=== PATIENT | male | born 1970 | race Caucasian/White ===

== ENCOUNTER 2024-03-13 09:26 | Day surgery (SDC) | payer BC ==
[2024-03-09 17:09] LABS: BASOPHILS # (AUTO) 0.1 X10'3 (0-0.2); BASOPHILS % (AUTO) 0.7 % (0-1); EOSINOPHILS # (AUTO) 0.1 X10'3 (0-0.9); EOSINOPHILS % (AUTO) 1.6 % (0-6); HEMATOCRIT 41.6 % (42.0-52.0); HEMOGLOBIN 14.1 g/dl (14.0-17.9); LYMPHOCYTES # (AUTO) 2.8 X10'3 (1.1-4.8); LYMPHOCYTES % (AUTO) 32.3 % (21-51); MEAN CORPUSCULAR HEMOGLOBIN 30.8 PG (27.0-31.0); MEAN CORPUSCULAR HGB CONC 33.8 g/dL (33.0-36.5); MEAN CORPUSCULAR VOLUME 91.2 FL (78-98); MEAN PLATELET VOLUME 8.5 FL (7.4-10.4); MONOCYTES # (AUTO) 0.7 X10'3 (0-0.9); MONOCYTES % (AUTO) 8.7 % (2-12); NEUTROPHILS # (AUTO) 4.8 X10'3 (1.8-7.7); NEUTROPHILS % (AUTO) 56.7 % (42-75); PLATELET COUNT 278 X10'3 (140-440); RED BLOOD COUNT 4.56 X10'6 (4.70-6.10); RED CELL DISTRIBUTION WIDTH 13.4 % (11.5-14.5); WHITE BLOOD COUNT 8.5 X10'3 (4.5-11.0)
[2024-03-09 17:19] LABS: ALBUMIN 4.3 G/DL (3.4-5.0); ANION GAP 10 (8-16); BLOOD UREA NITROGEN 12 MG/DL (7-18); BUN/CREATININE RATIO 14.3 (10.0-20.0); CHLORIDE 101 MMOL/L (99-107); CHOL/HDL RATIO 2.8 (0.00-4.99); CHOLESTEROL 102 MG/DL (0-200); CREATININE 0.84 MG/DL (0.60-1.10); GLUCOSE 90 MG/DL (70-104); HDL CHOLESTEROL 37 MG/DL (35-60); LDL CHOLESTEROL 53 MG/DL (50-100); POTASSIUM 3.9 MMOL/L (3.5-5.1); SODIUM 139 MMOL/L (135-145); TOTAL CARBON DIOXIDE 28.3 MMOL/L (24-32); TRIGLYCERIDES 117 MG/DL (20-135); eGFR > 90 ML/MIN
[2024-03-09 17:20] LABS: APTT 27 SECONDS (22-32); PROTHROMBIN TIME 10.6 SECONDS (9.0-12.0)
[~2024-03-13] VITALS: Ht 170.2 cm; Wt 95.8 kg
[2024-03-13] VITALS (8 sets, daily range): BP systolic 110–141; BP diastolic 61–99; PULSE 62–74; RESP 16; TEMP 98.4; O2SAT 92–96
[2024-03-13] MEDS ORDERED: ASPI-611 PO (10:24)
[2024-03-13] MEDS ORDERED: ROSU10TA72 PO (10:24)
[2024-03-13] MEDS ORDERED: LIDOcaine 1% (10mg/ml) 2ml vial ONE (11:46)
[2024-03-13] MEDS ORDERED: verapamil 2.5 mg/ml inj IV ONE (11:46)
[2024-03-13] MEDS: diphenhydrAMINE 25mg capsule PO PRN (11:47)
[2024-03-13] MEDS ORDERED: midazolam 1 mg/ML 2ml injection ONE ×2 (11:47→12:43)
[2024-03-13] MEDS ORDERED: heparin 1,000unit/ml 10ml vial 10 ML ONE (11:47)
[2024-03-13] MEDS: LORazepam 0.5 MG tablet PO PRN (11:47)
[2024-03-13] MEDS ORDERED: fentaNYL/PF 50MCG/1 ML 2ML syringe ONE ×2 (11:47→12:43)
[2024-03-13] MEDS ORDERED: iohexol 350MG/ML 100ml bottle IV ONE (11:47)
[2024-03-13] MEDS: normal saline 1,000 ML IV SCH (11:48)
[2024-03-13] MEDS ORDERED: nitroGLYCERIN 500mcg/5mL D5W 5 ML IV ONE (11:49)
== END 2024-03-13 15:15 | disposition home or self-care (01) ==
LOC: SSTAY O 09:26
PROVIDERS: ATTEND Student in an Organized Health Care Education/Training Program
DX: R07.9 Chest pain, unspecified (principal); I49.3 Ventricular premature depolarization; I45.10 Unspecified right bundle-branch block; E78.00 Pure hypercholesterolemia, unspecified; I25.2 Old myocardial infarction; Z79.82 Long term (current) use of aspirin; Z79.899 Other long term (current) drug therapy
CPT/HCPCS: 36415; 80048; 80061; 85025; 85610; 85730; 93005; 93458; 99152; 99153; J1644; J2250; J3010; J3490; J7030; Q0163; Q9967; A6258; A6402; C1894